=== PATIENT | female | born 1985 | race Caucasian/White ===

== ENCOUNTER 2025-02-22 18:13 | Outpatient (REF) | payer MEDICAID, SELFPAY ==
[2025-02-22 18:51] LABS: MCH 28.8 pg (27.0-33.0); MCHC 32.5 % (32.0-36.0); MCV 89 fL (80-95); MPV 11.1 fL (8.0-11.0); Platelet Count 213 10^3/uL (130-400); RBC 4.51 10^6/uL (3.93-5.22); RDW 13.8 % (11.7-14.6); RDW-SD 44.6 fL; WBC 5.49 10^3/uL (4.4-10.8)
== END 2025-02-22 18:14 | disposition home or self-care (01) ==
LOC: NCHCN 18:13
PROVIDERS: PCP Family Medicine; Visit Provider Internal Medicine
DX: N87.0 Mild cervical dysplasia (principal)
CPT/HCPCS: 85027

== ENCOUNTER 2025-06-08 18:29 | Outpatient (REF) | payer MEDICAID, SELFPAY ==
--- NOTE | 2025-06-08 16:45 | PAPFT_PTH ---
PATIENT: Marlin Leija LOC: [facility]#:[id number] AGE/SX: 39/F ROOM: RE06/08/[address]: Miko Reyes : 1985 BED: DIS: 06/08/2025 SPEC #: [id number] RECD: 06/08/25 18:32 STATUS: LÁZARO REQ #: [id number] RHYS: 06/08/25 16:[address]: Sanam Reyes DEPT: [facility] Cytology RECD BY: Sherlyn Dumont ENTERED: 06/08/25 18:32 SP TYPE: PAPFT OTHR DR: Darryl Oliva Tissues: 1 - CX/ENDOCX FOR PAP SMEARS Procedures: PAP THIN PREP/[facility] Screening HPV DNA PROBE Comments: [id number] (HPV 16 & 18/45)
== END 2025-06-08 18:30 | disposition home or self-care (01) ==
LOC: NCHCN 18:29
PROVIDERS: PCP Family Medicine; Visit Provider Nurse Practitioner Family
DX: Z12.4 Encounter for screening for malignant neoplasm of cervix (principal)
CPT/HCPCS: 88142; 87624